=== PATIENT | female | born 1965 | race Caucasian/White ===

== ENCOUNTER 2016-12-31 17:19 | Emergency (ER) | payer BC, OTHER ==
[2016-12-31 15:13] LABS: BASOPHILS 0.2 %; BASOPHILS ABSOLUTE 0.03 10/3/uL (0.0-0.16); EOSINOPHILS 1.6 %; ER CBC TAT 0 Hrs 07 Mins; IMMATURE GRANULOCYTES 0.2 %; IMMATURE GRANULOCYTES ABSOLUTE 0.03 10/3/uL (0.0-0.11); LYMPHOCYTES 26.3 %; MEAN CORPUSCULAR HEMOGLOB 31.9 pg (26.0-34.0); MEAN CORPUSCULAR VOLUME 91.1 fL (80-100); MEAN PLATELET VOLUME 10.3 fL (9.2-13.0); MONOCYTES 5.9 %; MONOCYTES ABSOLUTE 0.72 10/3/uL (0.21-1.20); NEUTROPHILS 65.8 %; NEUTROPHILS ABSOLUTE 7.98 10/3/uL (2.02-8.40); PLATELET COUNT 159 10/3/uL (150-400); RBC DISTRIBUTION WIDTH 14.4 % (12.0-16.0); WHITE BLOOD CELLS 12.2 10/3/uL (4.5-10.5)
[2016-12-31 15:14] LABS: HEMATOCRIT 50.3 % (36.0-48.0); HEMOGLOBIN 17.6 g/dL (12.0-16.0); MANUAL DIFF NO %; RED CELL COUNT 5.52 10/6/uL (4.0-5.6)
[2016-12-31 15:32] LABS: A/G RATIO 0.8 (0.7-1.9); ALBUMIN 3.9 G/DL (3.5-5.0); ALKALINE PHOSPHATASE 174 U/L (45-117); BUN (BLOOD UREA NITROGEN) 9 MG/DL (6-23); CALCIUM, SERUM 9.6 MG/DL (8.5-10.4); CHLORIDE, SERUM 102 MMOL/L (96-112); CO2 (CARBON DIOXIDE) 25 MMOL/L (24-34); CREATININE 0.75 MG/DL (0.55-1.02); GFR AFRICAN AMERICAN 108 ML/MIN (>=60); GFR NON AFRICAN AMERICAN 93 ML/MIN (>=60); GLOBULIN 4.6 G/DL (2.5-4.1); GLUCOSE, SERUM 167 MG/DL (60-99); POTASSIUM, SERUM 3.5 MMOL/L (3.5-5.3); SGOT(AST) 32 U/L (5-40); SGPT(ALT) 42 U/L (5-65); SODIUM, SERUM 138 MMOL/L (135-148); TOTAL BILIRUBIN 0.6 MG/DL (0-1.2); TOTAL PROTEIN 8.5 G/DL (6.0-8.5)
[~2016-12-31 17:19] MED LIST: ACET500CAP PO; ADVAIR INH; ANADS PO; ATV.5 PO; BENTYL10 PO; BENTYL20 PO; BUSPAR15 M1 PO; CLARIT10 PO; CORRECTOL PO; CRESTOR10 PO; CYMBALTA60 PO; DIL2TAB PO; DURICEF PO; EFFEX75 PO; EFFEXOR XR150 MG PO; ESKALITH PO; ESTRACE1 MG PO; ESTRACE2 MG PO; ESTRADIOL1 MG PO; ESTRADIOL2 MG OR; ESTRADIOL2 MG PO; EZFE 200200 MG PO; GLUCOPHXR7 PO; GLUCPH PO; GYNODIOL1 MG PO; GYNODIOL2 MG PO; HAIR PO; HYDROCHLOROT25 MG PO; INVEGA9 MG OR; K500 PO; KLOR-CON 1010 MEQ PO; L20 PO; L40 PO; LAMICTAL10 PO; LAMICTAL25 PO; LANTUSCART SC; LIOR10 PO; LYRICA100 MG PO; LYRICA150 MG PO; MAXALT10 MG PO; METHOC500B PO; NEUR300 PO; NEUR600 PO; NIACOR500 MG PO; OCEAN NAS; OXYCOD PO; PCET PO; PERCODAN PO; PR12.5 PO; PR25 PO; PRAVAC PO; PRAVACHOL40 MG PO; PRILOSEC40 MG PO; PROAIR HFA INH; PROVENT20 INH; RANITIDINE300 MG PO; RISP2 PO; SANTYL250 MG/GM TOP; SEROQUEL400 MG PO; SKIN PO; SPIRIVA INH; SPIRO25 PO; SUCR PO; TYLENOL ARTH650 MG PO; V2 PO; VASOTEC2 PO; VASOTEC5 PO; VENTOLIN HFA INH; VOLT50 PO; WELLSR100 PO; XANAX1 MG PO; ZANTAC300 MG PO; [UNRECOGNIZED DRUG - OTHER] PO
== END 2016-12-31 18:15 | disposition home or self-care (01) ==
LOC: ER 17:19
PROVIDERS: Emergency Medicine
DX: R11.2 Nausea with vomiting, unspecified (principal); R19.7 Diarrhea, unspecified; D72.829 Elevated white blood cell count, unspecified; J45.909 Unspecified asthma, uncomplicated; J44.9 Chronic obstructive pulmonary disease, unspecified; K21.9 Gastro-esophageal reflux disease without esophagitis; F31.9 Bipolar disorder, unspecified; F41.9 Anxiety disorder, unspecified; E11.40 Type 2 diabetes mellitus with diabetic neuropathy, unspecified; F17.200 Nicotine dependence, unspecified, uncomplicated; Z90.710 Acquired absence of both cervix and uterus
CPT/HCPCS: 74176; 80053; 81001; 83690; 85025; 96374; 99285; J2405